=== PATIENT | female | born 1990 | race Caucasian/White ===

== ENCOUNTER 2021-07-08 20:33 | Emergency (ER) | payer SELFPAY ==
[2021-07-08] MEDS ORDERED: Azithromycin 250 MG TAB ONE (22:12)
[2021-07-08 22:24] LABS: Red Blood Cell (RBC) Count 4.86 mill/uL (4.20-5.40)
[2021-07-08 22:25] LABS: Band 7 % (5-11); Lymphocytes 43 % (21-51); Manual Diff?? YES; Mean Corpuscular HGB CONC 31.3 g/dL (32.0-36.0); Mean Corpuscular Hemoglobin 28.7 pg (27.0-31.0); Mean Corpuscular Volume 91.9 fL (78.0-98.0); Mean Platelet Volume 10.2 fL (7.4-10.4); Neutrophil 47 % (42-75); Platelet Count 122 thou/uL (130-400); RBC Distribution Width 11.8 % (11.5-14.5)
[2021-07-08 22:26] LABS: Metamyelocyte 1 % (0-0); Monocytes 2 % (0-10); Platelet Morphology Comment Appears Decreased; RBC Morphology Normal
[2021-07-08 22:27] LABS: MDiff Complete? YES
[2021-07-09 14:52] LABS: SARS-CoV-2 PCR by NAA DETECTED (NotDetected)
== END 2021-07-08 22:20 | disposition home or self-care (01) ==
LOC: NAV ERS 20:33
DX: U07.1 COVID-19 (principal); J01.90 Acute sinusitis, unspecified; R00.0 Tachycardia, unspecified
CPT/HCPCS: 71046; 85025; U0003; U0005

== ENCOUNTER 2023-03-11 20:08 | Emergency (ER) | payer SELFPAY ==
[2023-03-11] MEDS ORDERED: Sodium Chloride 0.9% 1,000 ML ONE (20:44)
[2023-03-11 20:50] LABS: #Lymphocytes 2.1 thou/uL (1.20-3.40); #Monocytes 0.6 thou/uL (0.11-0.59); %Basophils 0.7 % (0.0-1.0); %Eosinophils 0.4 % (0.0-10.0); %Lymphocytes 30.4 % (21.0-51.0); %Neutrophils 59.5 % (42.0-75.0); Hemoglobin 13.9 g/dL (12.0-16.0); Mean Corpuscular HGB CONC 32.7 g/dL (32.0-36.0); Mean Corpuscular Hemoglobin 30.3 pg (27.0-31.0); Mean Corpuscular Volume 92.9 fl (78.0-98.0); Mean Platelet Volume 9.7 fL (7.4-10.4); Platelet Count 191 10x3/uL (130-400); RBC Distribution Width 11.4 % (11.5-14.5); Red Blood Cell (RBC) Count 4.59 mill/uL (4.20-5.40); White Blood Cell (WBC) Count 6.7 10x3/uL (4.8-10.8)
[2023-03-11 21:06] LABS: Anion Gap 14 mmol/L (10-20); BUN (Urea Nitrogen) 7 mg/dL (7.0-18.7); CK (CPK) 79 U/L (29-168); Calc. Creatinine Clearance 0 mL/min (70-130); Calcium 9.8 mg/dL (7.8-10.44); Carbon Dioxide 24 mmol/L (22-29); Chloride 105 mmol/L (98-107); Estimated GFR 93; Glucose 89 mg/dL (70-105); Potassium 3.4 mmol/L (3.5-5.1); Sodium 140 mmol/L (136-145)
[2023-03-11] MEDS ORDERED: Ketorolac Tromethamine 30 MG/ML VIAL ONE (21:31)
== END 2023-03-11 21:54 | disposition home or self-care (01) ==
LOC: NAV ERS 20:08
DX: E86.0 Dehydration (principal); R25.2 Cramp and spasm; Z79.899 Other long term (current) drug therapy
CPT/HCPCS: 80048; 82550; 85025; 85379; 96361; 96374; J1885; J7050